=== PATIENT | female | born 1960 | race Caucasian/White ===

== ENCOUNTER 2020-07-13 05:50 | Inpatient (IN) ==
[2020-07-08 12:22] LABS: Calcium 9.5 MG/DL (8.5-10.1); Osmolality,Calculated 274.7 MOS/KG (273-304)
[2020-07-08 12:36] LABS: Basophils % 0.4 % (0.0-0.8); Eosinophils # 0.1 10*3/uL (0.0-0.87); Eosinophils % 1.5 % (0.00-10.9); Hematocrit 38.7 VOL% (35.7-47.0); Hemoglobin 12.4 GM/DL (12.0-16.0); Immature Granulocytes % 0.6 %; Immature Granulocytes Absolute 0.04 #; Lymphocytes % 27.1 % (21.3-54.2); Mean Platelet Volume 10.4 FL (9.6-12.0); Monocytes % 4.8 % (1.7-12.7); Neutrophils % 65.6 % (38.7-73.9); Platelet Count 262 T/CUMM (130-400); Red Blood Count 4.03 MC/CUMM (3.8-5.5); Red Cell Distribution Width 15.1 % (9.3-17.3); White Blood Count 7.3 T/CUMM (4-12)
[2020-07-13] MEDS ORDERED: FAMOTIDINE 20 MG/2 ML VIAL IV STA (06:29)
[2020-07-13] MEDS ORDERED: cefOXitin 1,000 MG in SYRINGE 1 EACH IV ONE (06:30)
[2020-07-13] MEDS: LACTATED RINGERS 1,000 ML IV SCH ×2 (06:30→10:31)
[2020-07-13] MEDS ORDERED: NEOMYCIN/POLYMYXIN IRRIG SOLN 1 ML AMP BLADDERIRR ONE (06:38)
[2020-07-13] MEDS ORDERED: TISSUE ADHESIVE 1 EACH APPLICATOR TOP ONE (06:45)
[2020-07-13] MEDS ORDERED: INDOCYANINE GREEN 25 MG VIAL IV ONE (06:46)
[2020-07-13] MEDS ORDERED: LIDOCAINE 1%/EPI INJ 20 ML VIAL ONE (06:59)
[2020-07-13] MEDS ORDERED: BUPIVACAINE MPF 0.25% 30 ML VIAL ONE (06:59)
[2020-07-13] MEDS ORDERED: LIDOCAINE 2% 5 ML VIAL ONE (12:47)
[2020-07-13] MEDS ORDERED: propofoL 200 MG/20 ML VIAL IV ONE (12:47)
[2020-07-13] MEDS ORDERED: SEVOFLURANE 1 UNIT/15 MINUTE INH ONE (12:48)
[2020-07-13] MEDS ORDERED: GLYCOPYRROLATE 0.4 MG/2 ML VIAL ONE (12:48)
[2020-07-13] MEDS ORDERED: MIDAZOLAM 2 MG/2 ML VIAL ONE (12:48)
[2020-07-13] MEDS ORDERED: DEXAMETHASONE 4 MG/1 ML VIAL ONE (12:48)
[2020-07-13] MEDS ORDERED: ONDANSETRON 4 MG/2 ML VIAL ONE ×2 (12:48→12:51)
[2020-07-13] MEDS ORDERED: ROCURONIUM 100 MG/10 ML VIAL IV ONE (12:49)
[2020-07-13] MEDS ORDERED: NEOSTIGMINE 10 MG/10 ML VIAL ONE (12:49)
[2020-07-13] MEDS ORDERED: LACTATED RINGERS 1,000 ML IV ONE (12:49)
[2020-07-13] MEDS ORDERED: fentaNYL 100 MCG/2 ML VIAL ONE (12:49)
[2020-07-13] MEDS ORDERED: ALBUTEROL INHALER 18 GM INH ONE (12:49)
[2020-07-13] MEDS ORDERED: PHENYLEPHRINE 1 MG/10 ML SYRINGE IV ONE (12:49)
[2020-07-13] MEDS: HYDROmorphone 2 MG/1 ML VIAL IV PRN ×2 (12:50→13:05)
[2020-07-13] MEDS ORDERED: HYDROmorphone 2 MG/1 ML VIAL ONE (12:51)
[2020-07-13] MEDS ORDERED: MEPERIDINE 25 MG/1 ML VIAL IV PRN (12:55)
[2020-07-13] MEDS ORDERED: ONDANSETRON 4 MG/2 ML VIAL IV PRN (12:55)
[2020-07-13 13:31] LABS: Hematocrit 40.3 VOL% (35.7-47.0); Hemoglobin 12.4 GM/DL (12.0-16.0)
[2020-07-13] MEDS: DEXTROSE 5% LACTATED RINGERS 1,000 ML IV SCH ×2 (14:20→23:21)
[2020-07-13] MEDS: MORPHINE 4 MG/1 ML VIAL IV PRN ×2 (16:58→23:53)
[2020-07-13] MEDS ORDERED: OXYBUTYNIN XL 10 MG TABLET PO ONE (17:15)
[2020-07-13] MEDS ORDERED: PNEUMOCOCCAL VACCINE (23 VALENT) 0.5 ML VIAL IM ONE (18:10)
[2020-07-13] MEDS: metroNIDAZOLE INJ 500 MG in PREMIX 1 EACH IV SCH (19:23)
[2020-07-13] MEDS: ALVIMOPAN 12 MG CAPSULE PO SCH (20:40)
[2020-07-13 21:09] LABS: Hematocrit 36.9 VOL% (35.7-47.0); Hemoglobin 11.7 GM/DL (12.0-16.0)
[2020-07-14] MEDS: metroNIDAZOLE INJ 500 MG in PREMIX 1 EACH IV SCH (02:41)
[2020-07-14 05:01] LABS: Basophils % 0.2 % (0.0-0.8); Eosinophils % 0.1 % (0.00-10.9); Hematocrit 34.4 VOL% (35.7-47.0); Hemoglobin 11.1 GM/DL (12.0-16.0); Immature Granulocytes % 0.5 %; Immature Granulocytes Absolute 0.08 #; Lymphocytes # 1.9 10*3/uL (1.4-4.0); Lymphocytes % 12.3 % (21.3-54.2); Mean Corpuscular HGB Conc 32.3 GM/DL (32-36); Mean Corpuscular Volume 96.6 FL (87-102); Mean Platelet Volume 9.3 FL (9.6-12.0); Monocytes % 7.1 % (1.7-12.7); Neutrophils % 79.8 % (38.7-73.9); Platelet Count 203 T/CUMM (130-400); Red Blood Count 3.56 MC/CUMM (3.8-5.5); Red Cell Distribution Width 14.5 % (9.3-17.3); White Blood Count 15.5 T/CUMM (4-12)
[2020-07-14] MEDS: MORPHINE 4 MG/1 ML VIAL IV PRN ×5 (05:14→21:54)
[2020-07-14 05:49] LABS: Calcium 8.6 MG/DL (8.5-10.1); Osmolality,Calculated 277.4 MOS/KG (273-304)
[2020-07-14] MEDS ORDERED: LEVOFLOXACIN INJ 500 MG in PREMIX 1 EACH IV SCH (06:52)
[2020-07-14] MEDS: ENOXAPARIN 40 MG/0.4 ML SYRINGE SUBCUT SCH (08:45)
[2020-07-14] MEDS: ALVIMOPAN 12 MG CAPSULE PO SCH ×2 (08:46→20:43)
[2020-07-14] MEDS: PANTOPRAZOLE 40 MG TABLET PO SCH (08:46)
[2020-07-14] MEDS: OXYBUTYNIN XL 10 MG TABLET PO SCH (08:46)
[2020-07-14] MEDS: DEXTROSE 5% LACTATED RINGERS 1,000 ML IV SCH ×3 (08:47→21:00)
[2020-07-15] MEDS: ONDANSETRON 4 MG/2 ML VIAL IV PRN ×4 (02:27→22:06)
[2020-07-15] MEDS: MORPHINE 4 MG/1 ML VIAL IV PRN ×4 (04:05→22:01)
[2020-07-15] MEDS: ENOXAPARIN 40 MG/0.4 ML SYRINGE SUBCUT SCH (06:35)
[2020-07-15] MEDS: OXYBUTYNIN XL 10 MG TABLET PO SCH (08:44)
[2020-07-15] MEDS: ALVIMOPAN 12 MG CAPSULE PO SCH ×2 (08:44→20:40)
[2020-07-15] MEDS: PANTOPRAZOLE 40 MG TABLET PO SCH (08:44)
[2020-07-15] MEDS: DEXTROSE 5% LACTATED RINGERS 1,000 ML IV SCH ×2 (08:46→16:50)
[2020-07-15] MEDS: clonazePAM 0.5 MG TABLET PO SCH (20:43)
[2020-07-16] MEDS: MORPHINE 4 MG/1 ML VIAL IV PRN ×5 (03:10→21:13)
[2020-07-16] MEDS: DEXTROSE 5% LACTATED RINGERS 1,000 ML IV SCH (03:16)
[2020-07-16] MEDS: ONDANSETRON 4 MG/2 ML VIAL IV PRN ×4 (03:17→18:22)
[2020-07-16] MEDS: ENOXAPARIN 40 MG/0.4 ML SYRINGE SUBCUT SCH (07:05)
[2020-07-16] MEDS: PANTOPRAZOLE 40 MG TABLET PO SCH (09:01)
[2020-07-16] MEDS: ALVIMOPAN 12 MG CAPSULE PO SCH (09:01)
[2020-07-16] MEDS: OXYBUTYNIN XL 10 MG TABLET PO SCH (09:01)
[2020-07-16] MEDS: clonazePAM 0.5 MG TABLET PO SCH (20:39)
[2020-07-17] MEDS: ALVIMOPAN 12 MG CAPSULE PO SCH (01:17)
[2020-07-17] MEDS: DEXTROSE 5% LACTATED RINGERS 1,000 ML IV SCH ×2 (03:20→07:12)
[2020-07-17] MEDS: MORPHINE 4 MG/1 ML VIAL IV PRN ×4 (05:02→20:25)
[2020-07-17] MEDS: ENOXAPARIN 40 MG/0.4 ML SYRINGE SUBCUT SCH (06:22)
[2020-07-17] MEDS: PANTOPRAZOLE 40 MG TABLET PO SCH (09:29)
[2020-07-17] MEDS: OXYBUTYNIN XL 10 MG TABLET PO SCH (09:29)
[2020-07-17] MEDS: oxyCODONE/ACETAMINOPHEN 5-325 MG TABLET PO PRN ×2 (13:19→17:14)
[2020-07-17] MEDS: ONDANSETRON 4 MG/2 ML VIAL IV PRN (15:06)
[2020-07-17] MEDS: METHOCARBAMOL INJ 1,000 MG in SODIUM CHLORIDE 0.9% 100 ML IV SCH (17:12)
[2020-07-17] MEDS: clonazePAM 0.5 MG TABLET PO SCH (20:25)
[2020-07-18] MEDS: METHOCARBAMOL INJ 1,000 MG in SODIUM CHLORIDE 0.9% 100 ML IV SCH ×2 (00:21→09:29)
[2020-07-18] MEDS: MORPHINE 4 MG/1 ML VIAL IV PRN ×2 (00:59→06:43)
[2020-07-18] MEDS: oxyCODONE/ACETAMINOPHEN 5-325 MG TABLET PO PRN ×2 (04:25→11:27)
[2020-07-18] MEDS: ENOXAPARIN 40 MG/0.4 ML SYRINGE SUBCUT SCH (06:47)
[2020-07-18 08:12] LABS: Basophils % 0.1 % (0.0-0.8); Eosinophils # 0.1 10*3/uL (0.0-0.87); Eosinophils % 0.6 % (0.00-10.9); Hematocrit 30.7 VOL% (35.7-47.0); Hemoglobin 9.9 GM/DL (12.0-16.0); Immature Granulocytes % 0.4 %; Immature Granulocytes Absolute 0.03 #; Lymphocytes # 1.2 10*3/uL (1.4-4.0); Lymphocytes % 15.1 % (21.3-54.2); Mean Corpuscular HGB Conc 32.2 GM/DL (32-36); Mean Corpuscular Volume 96.2 FL (87-102); Mean Platelet Volume 9.5 FL (9.6-12.0); Monocytes % 4.4 % (1.7-12.7); Neutrophils % 79.4 % (38.7-73.9); Platelet Count 201 T/CUMM (130-400); Red Blood Count 3.19 MC/CUMM (3.8-5.5)
[2020-07-18 08:27] VITALS: BP 109/58
[2020-07-18] MEDS: OXYBUTYNIN XL 10 MG TABLET PO SCH (09:32)
[2020-07-18] MEDS: PANTOPRAZOLE 40 MG TABLET PO SCH (09:32)
[2020-07-18] MEDS: DEXTROSE 5% LACTATED RINGERS 1,000 ML IV SCH (13:21)
== END 2020-07-18 14:00 | disposition home or self-care (01) | DRG 660 ==
LOC: N.OR 05:50 → N.SDSINP 05:52 → N.4E 13:32
PROVIDERS: ADMIT Surgery; ATTEND Surgery